=== PATIENT | female | born 1935 | race Caucasian/White ===

== ENCOUNTER 2023-04-08 09:46 | Outpatient (CLI) | payer MEDICARE, OTHER | END 2023-04-08 09:47 | disposition home or self-care (01) | LOC: CSHWCC 09:46 | PROVIDERS: ATTEND Nurse Practitioner Family | DX: S81.812D Laceration without foreign body, left lower leg, subsequent encounter (principal) | CPT/HCPCS: 11043; 11046; G0463; 99214 ==

== ENCOUNTER 2023-04-11 15:31 | Outpatient (CLI) | payer MEDICARE, OTHER | END 2023-04-11 15:32 | disposition home or self-care (01) | LOC: CSHWCC 15:31 | PROVIDERS: ATTEND Nurse Practitioner Family | DX: S81.812D Laceration without foreign body, left lower leg, subsequent encounter (principal) | CPT/HCPCS: 29581 ==

== ENCOUNTER 2023-04-15 11:09 | Outpatient (CLI) | payer MEDICARE, OTHER | END 2023-04-15 11:10 | disposition home or self-care (01) | LOC: CSHWCC 11:09 | PROVIDERS: ATTEND Nurse Practitioner Family | DX: S81.822D Laceration with foreign body, left lower leg, subsequent encounter (principal); I87.312 Chronic venous hypertension (idiopathic) with ulcer of left lower extremity; L97.322 Non-pressure chronic ulcer of left ankle with fat layer exposed | CPT/HCPCS: 11042; 11045 ==

== ENCOUNTER 2023-04-22 13:28 | Outpatient (CLI) | payer MEDICARE, OTHER | END 2023-04-22 13:29 | disposition home or self-care (01) | LOC: CSHWCC 13:28 | PROVIDERS: ATTEND Nurse Practitioner Family | DX: S81.822D Laceration with foreign body, left lower leg, subsequent encounter (principal); I87.312 Chronic venous hypertension (idiopathic) with ulcer of left lower extremity; L97.322 Non-pressure chronic ulcer of left ankle with fat layer exposed | CPT/HCPCS: 11042 ==

== ENCOUNTER 2023-08-22 13:11 | Outpatient (CLI) | payer MEDICARE, OTHER | END 2023-08-22 13:12 | disposition home or self-care (01) | LOC: CSHMAMMO 13:11 | PROVIDERS: ATTEND Family Medicine Sports Medicine | DX: Z12.31 Encounter for screening mammogram for malignant neoplasm of breast (principal) | CPT/HCPCS: 77063; 77067 ==

== ENCOUNTER 2024-03-03 15:55 | Inpatient (IN) | payer MEDICARE, OTHER ==
[2024-03-03] MEDS ORDERED: Magnesium 2 GM/50 ML BAG (IN WATER) ONE (16:25)
[2024-03-03] MEDS ORDERED: Ipratropium/Albuterol 3 ML NEB ONE (16:25)
[2024-03-03] MEDS ORDERED: Dexamethasone 10 MG/ML VIAL ONE (16:49)
[2024-03-03 17:01] LABS: ALT (SGPT) 47 U/L (8-55); AST (SGOT) 39 U/L (5-34); Albumin 2.9 g/dL (3.4-4.8); Alkaline Phosphatase 88 U/L (40-110); Anion Gap 21 mmol/L (10-20); BUN (Urea Nitrogen) 18 mg/dL (9.8-20.1); Bilirubin, Total 0.5 mg/dL (0.2-1.2); Calc. Creatinine Clearance 0 mL/min (70-130); Calcium 8.7 mg/dL (7.8-10.44); Carbon Dioxide 23 mmol/L (23-31); Chloride 97 mmol/L (98-107); Estimated GFR 73; Globulin 3.8 g/dL (2.4-3.5); Glucose 109 mg/dL (83-110); Protein, Total 6.7 g/dL (5.8-8.1); Sodium 138 mmol/L (136-145)
[2024-03-03 17:05] LABS: Potassium 2.6 mmol/L (3.5-5.1)
[2024-03-03 17:08] LABS: Troponin I 0.012 ng/mL (< 0.028)
[2024-03-03 17:28] LABS: Hematocrit 35.4 % (34.9-44.5); Hemoglobin 12.4 g/dL (12.0-15.5); Mean Corpuscular Hemoglobin 30.3 pg (27.0-33.0); Mean Corpuscular Volume 86.6 fL (81.6-98.3); Mean Platelet Volume 9.3 fL (7.4-10.4); Platelet Count 461 10x3/uL (150-450); RBC Distribution Width 13.4 % (11.5-14.5); Red Blood Cell (RBC) Count 4.09 10x6/uL (3.90-5.03); White Blood Cell (WBC) Count 12.2 10x3/uL (3.5-10.5)
[2024-03-03] MEDS ORDERED: Potassium Chloride 20 MEQ TAB ONE (17:30)
[2024-03-03 17:32] LABS: Band 8 % (5-11); Lymphocytes 9 % (21-51); MDiff Complete? YES; Monocytes 7 % (0-10); Neutrophil 76 % (42-75)
[2024-03-03] MEDS ORDERED: Sodium Chloride 0.9% 100 ML ONE (18:17)
[2024-03-03] MEDS ORDERED: cefTRIAXone (ROCEPHIN) 1 GM VIAL ONE (18:17)
[2024-03-03] MEDS ORDERED: Azithromycin 250 MG TAB ONE (18:21)
[2024-03-03] MEDS ORDERED: Nitroglycerin 0.4 MG TAB (25 Tab Bottle) SL PRN (20:15)
[2024-03-03] MEDS: Arformoterol 15 MCG/2 ML NEB NEB SCH (21:00)
[2024-03-03] MEDS: Budesonide 0.5 MG/2 ML NEB INH SCH (21:00)
[2024-03-03] MEDS: guaiFENesin ER 600 MG TAB PO SCH (22:13)
[2024-03-03] MEDS: Simvastatin 10 MG TAB PO SCH (22:13)
[2024-03-03] MEDS: QUEtiapine 25 MG TAB PO SCH (22:16)
[2024-03-03] MEDS: Potassium Chloride 20 MEQ TAB PO SCH (22:16)
[2024-03-03] MEDS: Gabapentin 100 MG CAP PO SCH (22:17)
[2024-03-03] MEDS: Pantoprazole 40 MG DR.TAB PO SCH (22:18)
[2024-03-03] MEDS: traMADol HCl 50 MG TAB PO SCH (22:18)
[2024-03-03] MEDS: Simethicone Chewable 80 MG TAB PO SCH (22:18)
[2024-03-03] MEDS: Topiramate 25 MG TAB PO SCH (22:21)
[2024-03-03] MEDS: Nortriptyline 10 MG CAP PO SCH (22:22)
[2024-03-04 03:35] VITALS: BMI 24.5
[2024-03-04] MEDS: Potassium Chloride 20 MEQ TAB PO ONE (04:46)
[2024-03-04 05:30] LABS: Anion Gap 19 mmol/L (10-20); BUN (Urea Nitrogen) 20 mg/dL (9.8-20.1); Calc. Creatinine Clearance 43 mL/min (70-130); Calcium 8.7 mg/dL (7.8-10.44); Carbon Dioxide 24 mmol/L (23-31); Chloride 97 mmol/L (98-107); Estimated GFR 64; Glucose 196 mg/dL (83-110); Sodium 137 mmol/L (136-145)
[2024-03-04 05:39] LABS: Hematocrit 32.6 % (34.9-44.5); Hemoglobin 10.7 g/dL (12.0-15.5); Mean Corpuscular HGB CONC 32.8 g/dL (32.0-36.0); Mean Corpuscular Hemoglobin 28.9 pg (27.0-33.0); Mean Corpuscular Volume 88.1 fL (81.6-98.3); Platelet Count 415 10x3/uL (150-450); RBC Distribution Width 13.4 % (11.5-14.5); White Blood Cell (WBC) Count 9.1 10x3/uL (3.5-10.5)
[2024-03-04 06:39] LABS: Dohle Bodies SLIGHT; MDiff Complete? YES; Platelet Adequacy Comment Appears Adequate; Toxic Granulation SLIGHT
[2024-03-04 06:40] LABS: RBC Morph Comment Within Normal Limits
[2024-03-04] MEDS: Arformoterol 15 MCG/2 ML NEB NEB SCH (08:05)
[2024-03-04] MEDS: Ipratropium/Albuterol 3 ML NEB NEB SCH (08:10)
[2024-03-04] MEDS: Budesonide 0.5 MG/2 ML NEB INH SCH (08:15)
[2024-03-04] MEDS ORDERED: Levothyroxine Sodium 50 MCG TAB PO SCH (09:00)
[2024-03-04] MEDS ORDERED: Doxycycline 100 MG in Syringe 0 ML IVPB SCH (09:00)
[2024-03-04] MEDS: Doxycycline 100 MG in Sodium Chloride 0.9% 100 ML IVPB SCH ×2 (09:05→11:15)
[2024-03-04] MEDS: CO Q-10 CAPSULE 50 MG PO SCH (09:06)
[2024-03-04] MEDS: Multivitamin W/ Minerals 1 TAB PO SCH (09:08)
[2024-03-04] MEDS: predniSONE 20 MG TAB PO SCH (09:08)
[2024-03-04] MEDS: Enoxaparin 40 MG (0.4 mL) SYRINGE SC SCH (09:08)
[2024-03-04] MEDS: Calcium Carbonate 600 MG + Vit D TAB PO SCH (09:08)
[2024-03-04] MEDS: Citalopram 20 MG TAB PO SCH (09:09)
[2024-03-04] MEDS: Trospium 20 MG TAB PO SCH (09:10)
[2024-03-04] MEDS: Metoprolol Succinate XL 25 MG ER.TAB PO SCH (09:10)
[2024-03-04 09:53] VITALS: BMI 24.5
[2024-03-04] MEDS: Potassium Chloride 20 MEQ TAB PO SCH ×2 (10:38→22:25)
[2024-03-04] MEDS: Torsemide 20 MG TAB PO SCH (15:08)
[2024-03-04] MEDS: Levothyroxine Sodium 50 MCG TAB PO SCH (15:08)
[2024-03-04] MEDS: FLU (Fluad Triv) TS24-25 (65UP)/MF59C/PF 45 MCG/0.5 ML Syringe IM ONE (18:09)
[2024-03-04] MEDS: cefTRIAXone\\ROCEPHIN 1 GM in Sodium Chloride 0.9% 100 ML IVPB SCH (18:11)
[2024-03-05 05:03] LABS: Anion Gap 15 mmol/L (10-20); BUN (Urea Nitrogen) 25 mg/dL (9.8-20.1); Calc. Creatinine Clearance 47 mL/min (70-130); Carbon Dioxide 27 mmol/L (23-31); Chloride 101 mmol/L (98-107); Estimated GFR 72; Glucose 112 mg/dL (83-110); Potassium 3.4 mmol/L (3.5-5.1); Sodium 140 mmol/L (136-145)
[2024-03-05 06:49] LABS: Hematocrit 31.1 % (34.9-44.5); Hemoglobin 10.7 g/dL (12.0-15.5); Mean Corpuscular HGB CONC 34.4 g/dL (32.0-36.0); Mean Corpuscular Hemoglobin 30.4 pg (27.0-33.0); Mean Corpuscular Volume 88.4 fL (81.6-98.3); Mean Platelet Volume 9.1 fL (7.4-10.4); Platelet Count 423 10x3/uL (150-450); RBC Distribution Width 13.7 % (11.5-14.5); Red Blood Cell (RBC) Count 3.52 10x6/uL (3.90-5.03); White Blood Cell (WBC) Count 12.06 10x3/uL (3.5-10.5)
[2024-03-05 07:36] LABS: Band 20 % (5-11); Lymphocytes 8 % (21-51); MDiff Complete? YES; Metamyelocyte 1 % (0-0); Monocytes 3 % (0-10); Myelocyte 1 % (0-0); Neutrophil 67 % (42-75); Platelet Adequacy Comment Appears Adequate; Toxic Granulation SLIGHT
[2024-03-05 07:37] LABS: RBC Morph Comment Within Normal Limits
[2024-03-05] MEDS: Ibuprofen 200 MG TAB PO PRN (19:31)
[2024-03-06 04:39] LABS: Hematocrit 32.6 % (34.9-44.5); Hemoglobin 10.7 g/dL (12.0-15.5); Mean Corpuscular HGB CONC 32.8 g/dL (32.0-36.0); Mean Corpuscular Hemoglobin 29.6 pg (27.0-33.0); Mean Corpuscular Volume 90.3 fL (81.6-98.3); Platelet Count 394 10x3/uL (150-450); RBC Distribution Width 14.2 % (11.5-14.5); Red Blood Cell (RBC) Count 3.61 10x6/uL (3.90-5.03); White Blood Cell (WBC) Count 9.42 10x3/uL (3.5-10.5)
[2024-03-06 04:49] LABS: Anion Gap 14 mmol/L (10-20); BUN (Urea Nitrogen) 19 mg/dL (9.8-20.1); Calc. Creatinine Clearance 47 mL/min (70-130); Calcium 8.8 mg/dL (7.8-10.44); Carbon Dioxide 22 mmol/L (23-31); Chloride 105 mmol/L (98-107); Estimated GFR 73; Glucose 93 mg/dL (83-110); Potassium 4.1 mmol/L (3.5-5.1); Sodium 137 mmol/L (136-145)
[2024-03-06 06:06] LABS: Band 6 % (5-11); Eosinophils 1 % (0-10); Lymphocytes 26 % (21-51); MDiff Complete? YES; Metamyelocyte 2 % (0-0); Monocytes 4 % (0-10); Myelocyte 3 % (0-0); Neutrophil 58 % (42-75); Nucleated RBC (Manual Ct) 1 % (0); Platelet Adequacy Comment Appears Adequate; Toxic Granulation SLIGHT
[2024-03-06] MEDS: Metoprolol Succinate XL 25 MG ER.TAB PO SCH (21:22)
[2024-03-07 03:48] LABS: Anion Gap 15 mmol/L (10-20); BUN (Urea Nitrogen) 17 mg/dL (9.8-20.1); Calc. Creatinine Clearance 51 mL/min (70-130); Calcium 8.8 mg/dL (7.8-10.44); Carbon Dioxide 21 mmol/L (23-31); Chloride 105 mmol/L (98-107); Estimated GFR 80; Glucose 94 mg/dL (83-110); Potassium 4.6 mmol/L (3.5-5.1); Sodium 136 mmol/L (136-145)
[2024-03-07 03:49] LABS: Hematocrit 31.3 % (34.9-44.5); Hemoglobin 10.7 g/dL (12.0-15.5); Mean Corpuscular HGB CONC 34.2 g/dL (32.0-36.0); Mean Corpuscular Hemoglobin 30.3 pg (27.0-33.0); Mean Corpuscular Volume 88.7 fL (81.6-98.3); Mean Platelet Volume 8.8 fL (7.4-10.4); Platelet Count 412 10x3/uL (150-450); RBC Distribution Width 14.2 % (11.5-14.5); Red Blood Cell (RBC) Count 3.53 10x6/uL (3.90-5.03); White Blood Cell (WBC) Count 10.78 10x3/uL (3.5-10.5)
[2024-03-07 04:01] LABS: Band 12 % (5-11); Lymphocytes 11 % (21-51); MDiff Complete? YES; Metamyelocyte 3 % (0-0); Monocytes 1 % (0-10); Myelocyte 4 % (0-0); Neutrophil 69 % (42-75); Platelet Adequacy Comment Appears Adequate; Toxic Granulation SLIGHT
[2024-03-07] MEDS: Torsemide 20 MG TAB PO SCH (09:18)
[2024-03-07] MEDS: Doxycycline 100 MG CAP PO SCH (21:51)
[2024-03-09 04:53] LABS: Anion Gap 15 mmol/L (10-20); BUN (Urea Nitrogen) 26 mg/dL (9.8-20.1); Calc. Creatinine Clearance 46 mL/min (70-130); Calcium 9.4 mg/dL (7.8-10.44); Carbon Dioxide 23 mmol/L (23-31); Chloride 102 mmol/L (98-107); Estimated GFR 70; Glucose 100 mg/dL (83-110); Sodium 135 mmol/L (136-145)
[2024-03-09 04:54] LABS: Hematocrit 34.9 % (34.9-44.5); Hemoglobin 11.7 g/dL (12.0-15.5); Mean Corpuscular HGB CONC 33.5 g/dL (32.0-36.0); Mean Corpuscular Volume 89.5 fL (81.6-98.3); Mean Platelet Volume 8.6 fL (7.4-10.4); Platelet Count 437 10x3/uL (150-450); RBC Distribution Width 14.2 % (11.5-14.5); White Blood Cell (WBC) Count 10.78 10x3/uL (3.5-10.5)
[2024-03-09 05:22] LABS: Band 7 % (5-11); Lymphocytes 16 % (21-51); MDiff Complete? YES; Metamyelocyte 1 % (0-0); Monocytes 3 % (0-10); Myelocyte 2 % (0-0); Neutrophil 69 % (42-75); Platelet Adequacy Comment Appears Adequate; Reactive Lymphocytes 2 % (0-10); Toxic Granulation SLIGHT
[2024-03-10 13:59] VITALS: BP 138/70; TEMP 97.8
== END 2024-03-10 15:00 | DRG 193 ==
LOC: CSHERS 15:55 → CSHTELE 18:22
PROVIDERS: ADMIT Hospitalist; ATTEND Family Medicine
DX: J18.9 Pneumonia, unspecified organism (principal); J96.01 Acute respiratory failure with hypoxia; J45.901 Unspecified asthma with (acute) exacerbation; K21.9 Gastro-esophageal reflux disease without esophagitis; E03.9 Hypothyroidism, unspecified; Z66 Do not resuscitate; E87.6 Hypokalemia; M19.90 Unspecified osteoarthritis, unspecified site; I10 Essential (primary) hypertension; E78.00 Pure hypercholesterolemia, unspecified; Z90.710 Acquired absence of both cervix and uterus; Z90.49 Acquired absence of other specified parts of digestive tract; Z79.899 Other long term (current) drug therapy; Z79.891 Long term (current) use of opiate analgesic; Z79.890 Hormone replacement therapy; Z88.0 Allergy status to penicillin; Z88.8 Allergy status to other drugs, medicaments and biological substances; Z88.5 Allergy status to narcotic agent; Z90.722 Acquired absence of ovaries, bilateral
CPT/HCPCS: 36415; 36416; 71045; 80048; 80053; 83735; 83880; 84145; 84443; 84484; 85025; 87070; 87205; 87428; 93005; 94640; 94760; 94762; 96374; 96375; J0696; J1100; J1650; J3475; J7512; J7620; J7626